=== PATIENT | male | born 1980 | race Caucasian/White ===

== ENCOUNTER 2017-05-17 19:50 | Observation (INO) | payer OTHER ==
[2017-05-17 20:23] LABS: #Basophils 0.1 thou/uL (0.0-0.2); #Eosinphils 0.2 thou/uL (0.0-0.7); #Lymphocytes 2.5 thou/uL (1.20-3.40); #Monocytes 0.5 thou/uL (0.11-0.59); #Neutrophils 4.4 thou/uL (1.40-6.50); %Eosinophils 3.1 % (0.0-10.0); %Lymphocytes 32.8 % (21.0-51.0); %Monocytes 6.1 % (0.0-10.0); Hematocrit 44.7 % (42.0-52.0); Mean Platelet Volume 8.3 fL (7.4-10.4); Red Blood Cell (RBC) Count 4.94 mill/uL (4.70-6.10); White Blood Cell (WBC) Count 7.7 thou/uL (4.8-10.8)
[2017-05-17 20:46] LABS: ALT (SGPT) 21 U/L (8-55); AST (SGOT) 18 U/L (5-34); Alkaline Phosphatase 62 U/L (40-150); Anion Gap 14 mmol/L (10-20); BUN (Urea Nitrogen) 12 mg/dL (8.9-20.6); Bilirubin, Total 0.6 mg/dL (0.2-1.2); CK (CPK) 104 U/L (30-200); Calc. Creatinine Clearance 0 mL/min (70-130); Calcium 9.3 mg/dL (7.8-10.44); Carbon Dioxide 24 mmol/L (22-29); Chloride 104 mmol/L (98-107); Estimated GFR-MDRD 77; Globulin 3.2 g/dL (2.4-3.5); Protein, Total 7.2 g/dL (6.0-8.3)
[2017-05-17 20:48] LABS: Troponin I Less than 0.010 ng/mL (< 0.028)
--- NOTE | 2017-05-17 21:09 | RAD ---
PORTABLE AP CHEST X-RAY 05/17/17 HISTORY: Chest pain. FINDINGS: The cardiac silhouette and pulmonary vasculature are within normal limits. The lungs are clear. Osse ous structures are intact. IMPRESSION: No acute cardiopulmonary process. POS: [facility]
[2017-05-17] MEDS ORDERED: Nitroglycerin 2% Ointment 1 INCH/1 GM Packet ONE (22:22)
[2017-05-17] MEDS ORDERED: Ondansetron HCl/PF 4 MG/2 ML Vial IVP PRN (23:51)
[2017-05-17] MEDS ORDERED: Ondansetron ODT 4 MG TAB SL PRN (23:51)
[2017-05-17 23:56] LABS: Troponin I Less than 0.010 ng/mL (< 0.028)
[2017-05-18 00:06] VITALS: BMI 58.8
[2017-05-18] MEDS ORDERED: Ondansetron ODT 4 MG TAB PO PRN (02:32)
[2017-05-18] MEDS ORDERED: cloNIDine HCl 0.1 MG TAB PO PRN (02:32)
[2017-05-18] MEDS ORDERED: Ondansetron HCl/PF 4 MG/2 ML Vial IVP PRN (02:32)
[2017-05-18] MEDS ORDERED: Acetaminophen 500 MG TAB PO PRN (02:32)
[2017-05-18] MEDS ORDERED: Nitroglycerin 0.4 MG TAB (25 Tab Bottle) SL PRN (02:32)
[2017-05-18 02:44] LABS: Troponin I Less than 0.010 ng/mL (< 0.028)
--- NOTE | 2017-05-18 04:15 | HP ---
DATE OF ADMISSION: 05/17/2017 PRIMARY CARE PROVIDER: Marlo brown. CHIEF COMPLAINT: Chest pain. HISTORY OF PRESENT ILLNESS: This is a 36-year-old male, who presented to [facility] Emergency Department complaining of chest pain, which began approximately 12:30-1:30 p.m. on 06/2017. The patient states he was at his job when he had intermittent chest pain with intense burn ing pressure in the central portion of his chest. The patient initially felt like this was indigest ion, improved when sitting down and resting. The patient denied any associated diaphoresis, left ar m or jaw discomfort. The patient does admit to associated generalized weakness over the last 1-2 we eks. The patient denies any known personal coronary artery disease history, but does state a strong family history as his father had a history of a myocardial infarction in his 40s. The patient does admit to smoking up to a pack of cigarettes daily and has been battling obesity. The patient also states he is taking Vyvanse for adult ADHD with intermittent dosing over the last week to 2 weeks. The patient denies any other exposure history to medications or [id number] remedies. The serafin ent does admit to some associated cough and cold-like symptoms over the last week, but no documented fever. In the emergency room, the patient underwent general evaluation receiving transdermal nitro glycerin as well as aspirin 324 mg. Initial workup including chest imaging was unremarkable. PAST MEDICAL HISTORY: 1. Adult ADD. 2. Morbid obesity. 3. History of lower extremity venous ulcerations requiring wound care. 4. Tobacco use. PAST SURGICAL HISTORY: Reviewed and negative. CURRENT MEDICATIONS: Vyvanse 70 mg p.o. daily. ALLERGIES: PENICILLIN and SULFA. FAMILY HISTORY: Father with early coronary artery disease and myocardial infarction in his 40s. SOCIAL HISTORY: Patient is , residing in [place], [place]. Smokes up to a pack of cig arettes daily. Occasional alcohol use. No illicit drug use. REVIEW OF SYSTEMS: The following complete review of systems was negative, unless otherwise mentione d in the HPI or below: Constitutional: Weight loss or gain, ability to conduct usual activities. Skin: Rash, itching. Eyes: Double vision, pain. ENT/Mouth: Nose bleeding, neck stiffness, pain, tenderness. Cardiovascular: Palpitations, dyspnea on exertion, orthopnea. Respiratory: Shortnes s of breath, wheezing, cough, hemoptysis, fever or night sweats. Gastrointestinal: Poor appetite, abdominal pain, heartburn, nausea, vomiting, constipation, or diarrhea. Genitourinary: Urgency, fr equency, dysuria, nocturia. Musculoskeletal: Pain, swelling. Neurologic/Psychiatric: Anxiety, de pression. Allergy/Immunologic: Skin rash, bleeding tendency. PHYSICAL EXAMINATION: VITAL SIGNS: On admission, blood pressure 136/83, pulse 88, respiratory rate 18, temperature 97.5 d egrees Fahrenheit, O2 saturation 96% on room air. GENERAL APPEARANCE: This is a 36-year-old male, alert and oriented x3, pleasant, conversa nt, in no acute distress. HEENT: Pupils are equal, round, and reactive to light and accommodation. Extraocular muscles are i ntact. No scleral icterus, no conjunctival injection. Nares patent. OP is clear. Teeth in good r epair. NECK: Supple, no cervical adenopathy, no thyromegaly, no carotid bruits, no JVD appreciated. Cervi daniel spine with full active and passive range of motion. No meningeal signs appreciated. CHEST: Lungs are clear to auscultation bilaterally. CARDIOVASCULAR: S1, S2, without noted murmur. ABDOMEN: Obese, soft, nontender, nondistended. Exam limited due to patient's body habitus. No kika ound or guarding noted. EXTREMITIES: Warm and dry with fair turgor. No clubbing, cyanosis, or asymmetric edema appreciated . Pulses palpable distally at the dorsalis pedis, posterior tibial, and popliteal arteries bilatera lly. Capillary refill less than 2 seconds. NEUROLOGIC: Cranial nerves II through XII are grossly intact. No focal or lateralizing signs appre ciated. PERTINENT LABORATORY AND X-RAY FINDINGS: Complete metabolic profile within normal limits. Troponin I negative x2. Lipase 42. CBC within normal limits. D-dimer 0.33. Portable chest x-ray dated , showed no acute cardiopulmonary process. EKG dated 05/17/2017 by my interpretation, shows sinus mechanism with rates in the 70s. Normal R-wave progression noted in the precordial leads. N ormal axis. No acute ST-T wave changes appreciated. ASSESSMENT AND PLAN: 1. Chest pain. Patient will be observed on the telemetry unit. We will proceed with Cardiolite st ress testing in the a.m. The patient will need a 2-day protocol given patient's body weight and godinez itations of radioisotope exposure. Check fasting lipid profile in the a.m. Aspirin 325 mg p.o. david ly. 2. Tobacco use. We will offer smoking cessation resources prior to discharge. 3. Elevated blood pressure. We will continue to monitor blood pressure trend. No current outpatie nt treatment. 4. Adult attention deficit disorder. Resume Vyvanse 70 mg daily. 5. Morbid obesity. Low fat, heart-healthy diet. 6. Prophylaxis. Sequential compression devices while on bed. Pepcid 20 mg p.o. b.i.d. 7. Code status is FULL. Surrogate medical decision maker is patient's spouse.
[2017-05-18] MEDS ORDERED: Lisdexamfetamine Dimesylate [Vyvanse] 70 MG PO SCH (09:00)
[2017-05-18] MEDS: Aspirin 325 MG TAB PO SCH (09:53)
[2017-05-18] MEDS: Famotidine 20 MG TAB PO SCH ×2 (09:53→20:12)
[2017-05-18] MEDS ORDERED: Regadenoson 0.4 MG/5 ML SYRINGE ONE (14:15)
--- NOTE | 2017-05-18 16:45 | PDOC.PN ---
- Subjective Encounter Start Date: 05/18/17 Encounter Start Time: 16:43 Subjective: no chest pain - Objective Resuscitation Status: Resuscitation Status FULL:Full Resuscitation MAR Reviewed: Yes Vital Signs & Weight: Vital Signs (12 hours) Temp Pulse Resp BP Pulse Ox 05/18/17 16:19 98.3 F 72 18 125/58 L 99 05/18/17 11:10 98.1 F 64 16 131/69 99 05/18/17 10:10 100 05/18/17 08:00 98.6 F 63 18 05/18/17 07:27 98.6 F 63 18 114/58 L 100 Weight Weight 433 lb 6.4 oz Result Diagrams: 05/17/17 20:10 05/17/17 20:10 Phys Exam - Physical Examination Constitutional: NAD Neck: no JVD Respiratory: clear to auscultation bilateral Cardiovascular: RRR, no significant murmur Gastrointestinal: soft, positive bowel sounds Musculoskeletal: edema present Dx/Plan (1) Chest pain Code(s): R07.9 - CHEST PAIN, UNSPECIFIED Status: Acute Qualifiers: Chest pain type: unspecified Qualified Code(s): R07.9 - Chest pain, unspecified (2) HTN (hypertension) Code(s): I10 - ESSENTIAL (PRIMARY) HYPERTENSION Status: Acute Qualifiers: Hypertension type: unspecified Qualified Code(s): I10 - Essential (primary ) hypertension (3) Tobacco abuse Code(s): Z72.0 - TOBACCO USE Status: Chronic (4) Obesity Code(s): E66.9 - OBESITY, UNSPECIFIED Status: Chronic - Plan stable, 2 day stress required. cont current meds, diet , etc * .
[2017-05-19] MEDS: Aspirin 325 MG TAB PO SCH (09:32)
[2017-05-19] MEDS: Famotidine 20 MG TAB PO SCH (09:32)
--- NOTE | 2017-05-19 10:40 | NM ---
CARDIAC SPECT: CLINICAL HISTORY: 36-year-old male with chest pain. TECHNIQUE: A myocardial perfusion scan was performed using the single isotope two day protocol with 33 mCi tech netium-99m sestamibi injected intravenously for both stress and rest images. Pharmacologic stress [facility] Lexiscan was monitored and interpreted by Hunter Cabral NP. FINDINGS: Homogeneous tracer distribution is seen in the myocardial segments on stress and rest images without fixed or reversible defects. GATED SPECT LVEF: 54%. WALL MOTION EXAM: Normal. IMPRESSION: Normal myocardial perfusion scan. POS: [facility]
[2017-05-19 11:40] VITALS: BP 130/69; TEMP 98.3
--- NOTE | 2017-05-19 19:32 | DIS ---
PRIMARY CARE PROVIDER: Romaine Sarkar DO DATE OF ADMISSION: 05/18/2017 DATE OF DISCHARGE: 05/19/2017 ADMITTING DIAGNOSES: 1. Atypical chest pain. 2. Tobacco abuse. 3. Attention deficit disorder. 4. Morbid obesity. DISCHARGE DIAGNOSES: 1. Atypical right-sided chest pain. 2. Acute coronary syndrome ruled out. 3. Tobacco abuse. 4. Morbid obesity, BMI 58. 5. Attention deficit disorder, on Vyvanse. DISPOSITION: Home. CONSULTANTS: None. PROCEDURES: None. PERTINENT LABORATORY AND RADIOGRAPHICAL DATA: 1. Nuclear stress test 05/18/2017, revealing no evidence of reversible ischemia. 2. Cardiac enzymes x3 negative. LDL of 123, creatinine 1.07. Estimated GFR is 77. PHYSICAL EXAMINATION: GENERAL: On day of discharge, the patient is awake, alert, no complaints, no chest pain. VITAL SIGNS: T-max is 98.4, blood pressure is 130/69, pulse of 66, respiratory rate 16, saturation 99% on room air. BRIEF HISTORY OF HOSPITAL COURSE: The patient is morbidly obese and visual BMI of 58, tobacco abuse , who presented through the emergency room at [facility] with chest pain on 017. Patient reports that this on his right side in sharp and stabbing in nature. Patient was plac ed in observation status. Acute coronary syndrome ruled out. Today, nuclear stress test was perfor med due to the patient's body weight. Ultimately nuclear stress test is negative for reversible isc hemia. Patient's chest pains have resolved. Patient has been counseled as expected causation of va rious types of chest pain and has been reinforced to abstain from tobacco use as he was explained th e mechanism by which this would potentially cause chest pains. In addition, as he is morbidly obese with a BMI of 58, weighing 433 pounds, he has been encouraged to engage in cardiovascular exercise in order to decrease his body weight and ultimately his risk factors for developing high blood press ure, diabetes, and cardiovascular disease. The patient's LDL is slightly elevated at 123; however, this is still within reasonable range for li festyle modifications to be adjusted. The patient will address these issues with his provider who manages his ADD, Dr. Sarkar. DISCHARGE MEDICATIONS: Please see medication reconciliation form. Time spent approximately 30 minutes.
== END 2017-05-19 13:55 | disposition home or self-care (01) ==
LOC: ERS 19:50 → 2SW 23:23
PROVIDERS: ADMIT Family Medicine; ATTEND Family Medicine
DX: R07.89 Other chest pain (principal); F90.9 Attention-deficit hyperactivity disorder, unspecified type; F17.210 Nicotine dependence, cigarettes, uncomplicated; E66.01 Morbid (severe) obesity due to excess calories; Z68.43 Body mass index [BMI] 50.0-59.9, adult; Z88.0 Allergy status to penicillin; Z88.2 Allergy status to sulfonamides; Z79.899 Other long term (current) drug therapy
CPT/HCPCS: 36415; 71010; 78452; 80053; 80061; 82550; 82553; 83690; 84484; 85025; 85379; 93005; 93017; 94760; A9500; G0378; J2785

== ENCOUNTER 2020-06-07 14:45 | Inpatient (IN) | payer OTHER, SELFPAY ==
[2020-06-07 15:56] LABS: Mean Corpuscular HGB CONC 34.8 g/dL (32.0-36.0); Mean Corpuscular Volume 89.2 fL (78.0-98.0); Platelet Count 217 thou/uL (130-400); RBC Distribution Width 12.9 % (11.5-14.5); Red Blood Cell (RBC) Count 4.84 mill/uL (4.70-6.10); White Blood Cell (WBC) Count 25.5 thou/uL (4.8-10.8)
[2020-06-07] MEDS ORDERED: Cefepime 2 GM VIAL ONE (16:06)
[2020-06-07] MEDS ORDERED: Acetaminophen 500 MG TAB ONE (16:06)
[2020-06-07 16:10] LABS: Band 29 % (5-11); Lymphocytes 3 % (21-51); MDiff Complete? YES; Monocytes 4 % (0-10); Neutrophil 64 % (42-75); Platelet Morphology Comment Appears Adequate; RBC Morphology Normal; Vacuoles SLIGHT
--- NOTE | 2020-06-07 16:12 | RAD ---
Chest AP view INDICATION: Fever with right leg pain and cellulitis COMPARISON: May 17, 2017 FINDINGS: Lungs: The lungs are clear Cardiac silhouette: The cardiomediastinal silhouette appears within normal limits. Pulmonary vasculature: Normal Pleural spaces: No pleural effusion or pneumothorax is demonstrated. Upper abdomen: No abnormality seen. Osseous structures: No acute osseous abnormality. Additional findings: None. IMPRESSION: No acute cardiopulmonary abnormality.
[2020-06-07 16:17] LABS: ALT (SGPT) 16 U/L (8-55); AST (SGOT) 15 U/L (5-34); Alkaline Phosphatase 65 U/L (40-110); Anion Gap 17 mmol/L (10-20); BUN (Urea Nitrogen) 10 mg/dL (8.9-20.6); Bilirubin, Total 1.5 mg/dL (0.2-1.2); Calc. Creatinine Clearance 0 mL/min (70-130); Calcium 9.3 mg/dL (7.8-10.44); Carbon Dioxide 23 mmol/L (22-29); Chloride 99 mmol/L (98-107); Estimated GFR-MDRD 65; Globulin 3.6 g/dL (2.4-3.5); Glucose 141 mg/dL (70-105); Potassium 3.9 mmol/L (3.5-5.1); Protein, Total 7.6 g/dL (6.0-8.3); Sodium 135 mmol/L (136-145)
[2020-06-07] MEDS ORDERED: Senokot S 8.6-50 MG TAB PO PRN (16:57)
[2020-06-07] MEDS ORDERED: Sodium Chloride 0.9% 1,000 ML IV SCH (19:00)
[2020-06-07 19:15] LABS: Lactic Acid 1.4 mmol/L (0.5-2.2)
[2020-06-07 20:46] VITALS: BMI 61.0
[2020-06-07] MEDS: Famotidine 20 MG TAB PO SCH (20:59)
[2020-06-07] MEDS: Acetaminophen 325 MG TAB PO PRN (20:59)
--- NOTE | 2020-06-08 00:13 | HP ---
CHIEF COMPLAINT: Right lower extremity cellulitis. HISTORY OF PRESENT ILLNESS: The patient is a 39-year-old male with no past medical history, who comes in to the hospital with complaints of right lower leg pain with worsening erythema going on for the past couple days. The patient stated that he had a fever of 104 at home. He states that he slept all since Monday, woke up on Monday to do a few things around the house, maybe had some dinner; however, he has been feeling very tired and weak. Also, complains of fevers and chills at home. The patient states that he has had cellulitis in both his legs in the past. PAST MEDICAL HISTORY: Denies. PAST SURGICAL HISTORY: Denies. SOCIAL HISTORY: He occasionally drinks maybe one or two beers every other day. Former smoker. Occasional drug use. REVIEW OF SYSTEMS: All negative except for the ones mentioned in the HPI. FAMILY HISTORY: Father had a heart attack at the age of 40. ALLERGIES: HE IS ALLERGIC TO PENICILLIN AND SULFA. CURRENT MEDICATIONS: None. PHYSICAL EXAMINATION: VITAL SIGNS: Temperature of 103.2 in the ER, 99% on room air, heart rate was 119, respirations 18, blood pressure 169/87. GENERAL: He is awake, alert, oriented x3. Does not appear in distress. CV: Sinus tach mild, regular. ABDOMEN: Obese. Bowel sounds are present x2. LUNGS: Clear to auscultation. No rhonchi or wheezes noted. EXTREMITIES: Lower extremities, he has significant cellulitis to his right lower extremity titrating up to his right thigh area. He does have chronic healed lesions to his right pride. No drainage is noted. Pedal pulses are present bilaterally. NEUROVASCULAR: No focal deficits noted. SKIN: Besides the right leg cellulitis, significantly intact. LABORATORY RESULTS: WBCs are 25.5, hemoglobin 15.0, hematocrit of 43.2, bands of 29. Chemistry, sodium of 135, potassium of 3.9, BUN of 10, creatinine of 1.22, lactic acid of 2.5, bilirubin of 1.5. He did have a chest x-ray done, which did not show any acute abnormalities. ASSESSMENT AND PLAN: The patient is a very pleasant 39-year-old male, who presents to the hospital with complaints of right leg pain. 1. Sepsis, most likely cellulitis. We will start him on broad-spectrum antibiotics. We will start him on some IV hydration. Continue to monitor. 2. Cellulitis of the right lower extremity. He does have some chronic wounds, they are superficial. No drainage noted. We will continue antibiotics, IV hydration and monitor. 3. Lactic acidosis, most likely secondary to sepsis. We will monitor. 4. Deep vein thrombosis prophylaxis. We will put the patient on subcutaneous Lovenox. Job ID: [id number]
[2020-06-08] MEDS: Acetaminophen 325 MG TAB PO PRN ×2 (05:15→16:30)
[2020-06-08 06:24] LABS: Anion Gap 15 mmol/L (10-20); BUN (Urea Nitrogen) 12 mg/dL (8.9-20.6); Calc. Creatinine Clearance 278 mL/min (70-130); Calcium 8.1 mg/dL (7.8-10.44); Carbon Dioxide 19 mmol/L (22-29); Chloride 103 mmol/L (98-107); Estimated GFR-MDRD 81; Glucose 115 mg/dL (70-105); Potassium 4.1 mmol/L (3.5-5.1); Sodium 133 mmol/L (136-145)
[2020-06-08 06:38] LABS: Band 18 % (5-11); Hemoglobin 12.6 g/dL (14.0-18.0); Lymphocytes 3 % (21-51); MDiff Complete? YES; Mean Corpuscular HGB CONC 34.2 g/dL (32.0-36.0); Mean Corpuscular Hemoglobin 30.6 pg (27.0-31.0); Mean Corpuscular Volume 89.3 fL (78.0-98.0); Mean Platelet Volume 8.5 fL (7.4-10.4); Monocytes 3 % (0-10); Neutrophil 76 % (42-75); Platelet Count 164 thou/uL (130-400); Platelet Morphology Comment Appears Adequate; RBC Distribution Width 12.9 % (11.5-14.5); Red Blood Cell (RBC) Count 4.12 mill/uL (4.70-6.10); White Blood Cell (WBC) Count 16.5 thou/uL (4.8-10.8)
[2020-06-08] MEDS: Famotidine 20 MG TAB PO SCH ×2 (07:51→20:20)
[2020-06-08] MEDS: Enoxaparin Sodium 40 MG/0.4 ML SYRINGE SC SCH (07:51)
[2020-06-08] MEDS ORDERED: FLU VACC QS2020-21(6MOS UP)/PF 60 MCG/0.5 ML SYRINGE IM ONE (09:00)
[2020-06-08] MEDS ORDERED: Vancomycin HCl 1.5 GM in Sodium Chloride 0.9% 250 ML 300 ML IVPB SCH (09:00)
[2020-06-08 13:01] LABS: SARS-CoV-2 MS2 Positive; SARS-CoV-2 N Gene Negative; SARS-CoV-2 S Gene Negative; SARS-CoV-2 by NAA Not Detected (NotDetected); SARS-CoV-2 orf1ab Negative
[2020-06-08 16:14] LABS: Vancomycin, Trough 17.9 ug/mL
[2020-06-08] MEDS: Acetaminophen/Codeine 30-300mg Tablet PO PRN (20:20)
[2020-06-09] MEDS: Acetaminophen 325 MG TAB PO PRN (02:22)
[2020-06-09] MEDS ORDERED: Sodium Chloride 0.9% 1,000 ML IV SCH (03:00)
[2020-06-09] MEDS: Ondansetron PF 4 MG/2 ML Vial IVP PRN (06:00)
--- NOTE | 2020-06-09 08:54 | PDOC.HOSPP ---
- Subjective Encounter Date: 06/08/20 Encounter Time: 10:30 Subjective: pt up in bed no complains - Objective Vital Signs & Weight: Vital Signs (12 hours) Temp Pulse Resp BP BP Pulse Ox 06/09/20 07:25 99.1 F 80 20 138/82 958 H 06/09/20 06:03 84 157/89 H 06/09/20 05:46 98.9 F 06/09/20 03:15 100.9 F H 06/09/20 02:36 101.3 F H 06/09/20 02:14 103.1 F H 06/09/20 01:00 101 F H 06/08/20 23:42 101.8 F H Weight Weight 450 lb I&O: 06/08/20 06/09/20 06/10/20 06:59 06:59 06:59 Intake Total 3500 Balance 3500 Result Diagrams: 06/08/20 05:21 06/08/20 05:21 Hospitalist ROS - Review of Systems Respiratory: denies: cough, dry, shortness of breath, hemoptysis, SOB with excertion, pleuritic pain, sputum, wheezing, other Cardiovascular: denies: chest pain, palpitations, orthopnea, paroxysmal noc. dyspnea, edema, light headedness, other Gastrointestinal: denies: nausea, vomiting, abdominal pain, diarrhea, constipation, melena, hematochezia, other - Medication Medications: Active Medications Generic Name Dose Route Start Last Admin Trade Name Freq PRN Reason Stop Dose Admin Acetaminophen 650 mg 06/07/20 16:57 06/09/20 02:22 Acetaminophen 325 Mg Tab PO 650 mg Q8H PRN Administration Headache/Fever/Mild Pain (1-3) Acetaminophen/Codeine Phosphate 1 tab 06/07/20 18:46 06/08/20 20:20 Acetaminophen/Codeine 30-300mg Tablet PO 1 tab Q6H PRN Administration Pain 4-6 Enoxaparin Sodium 40 mg 06/08/20 09:00 06/08/20 07:51 Enoxaparin Sodium 40 Mg/0.4 Ml Syringe SC 40 mg 0900 JIGNESH Administration Famotidine 20 mg 06/07/20 21:00 06/08/20 20:20 Famotidine 20 Mg Tab PO 20 mg BID JIGNESH Administration Levofloxacin 750 mg/ Device 150 mls @ 100 mls/hr 06/07/20 20:00 06/08/20 20:22 IVPB 150 mls Q24HR JIGNESH Administration Vancomycin HCl 2 gm/ Sodium 500 mls @ 250 mls/hr 06/07/20 23:59 06/09/20 08:39 Chloride IVPB 500 mls 0800,1600,2359 JIGNESH Administration Sodium Chloride 1,000 mls @ 75 mls/hr 06/09/20 03:00 06/09/20 03:14 Normal Saline 0.9% IV 06/09/20 16:19 1,000 mls .[id number] JIGNESH Administration Ondansetron HCl 4 mg 06/07/20 16:57 06/09/20 06:00 Ondansetron Pf 4 Mg/2 Ml Vial IVP 4 mg Q6H PRN Administration Nausea/Vomiting - Exam Neck: negative: supple, symmetric, no JVD, no thyromegaly, no lymphadenopathy, no carotid bruit, JVD Heart: negative: RRR, no murmur, no gallops, no rubs, normal peripheral pulses, irregular, diminshed peripheral pulses, murmur present, II/IV, III/IV Respiratory: negative: CTAB, no wheezes, no rales, no ronchi, normal chest exp ansion, no tachypnea, normal percussion, rales, rhonchi, tachypneic, wheezes Extremities - other findings: right lower ext still has erythema but has improved. Hosp A/P (1) Sepsis Code(s): A41.9 - SEPSIS, UNSPECIFIED ORGANISM Status: Acute (2) Cellulitis Code(s): L03.90 - CELLULITIS, UNSPECIFIED Status: Acute (3) HTN (hypertension) Code(s): I10 - ESSENTIAL (PRIMARY) HYPERTENSION Status: Acute Qualifiers: (4) Obesity Code(s): E66.9 - OBESITY, UNSPECIFIED Status: Chronic - Plan will continue abx for now. pt still has some bandemia. possible discharge in the next 24-48hr. pt on dvt ppx and has been asked to ambulate.
[2020-06-09] MEDS: Enoxaparin Sodium 40 MG/0.4 ML SYRINGE SC SCH (10:48)
[2020-06-09] MEDS: Famotidine 20 MG TAB PO SCH ×2 (10:48→20:46)
--- NOTE | 2020-06-09 12:12 | PDOC.HOSPP ---
- Subjective Encounter Date: 06/09/20 Encounter Time: 11:45 Subjective: pt up in bed still complains of pain to her right lower ext. - Objective Vital Signs & Weight: Vital Signs (12 hours) Temp Pulse Resp BP BP Pulse Ox 06/09/20 07:25 99.1 F 80 20 138/82 98 06/09/20 06:03 84 157/89 H 06/09/20 05:46 98.9 F 06/09/20 03:15 100.9 F H 06/09/20 02:36 101.3 F H 06/09/20 02:14 103.1 F H 06/09/20 01:00 101 F H Weight Weight 450 lb I&O: 06/08/20 06/09/20 06/10/20 06:59 06:59 06:59 Intake Total 3500 Balance 3500 Result Diagrams: 06/08/20 05:21 06/08/20 05:21 Hospitalist ROS - Review of Systems Cardiovascular: denies: chest pain, palpitations, orthopnea, paroxysmal noc. dyspnea, edema, light headedness, other Gastrointestinal: denies: nausea, vomiting, abdominal pain, diarrhea, constipation, melena, hematochezia, other Genitourinary: denies: dysuria, frequency, incontinence, hematuria, retention, other Skin: reports: rash - Medication Medications: Active Medications Generic Name Dose Route Start Last Admin Trade Name Freq PRN Reason Stop Dose Admin Acetaminophen 650 mg 06/07/20 16:57 06/09/20 02:22 Acetaminophen 325 Mg Tab PO 650 mg Q8H PRN Administration Headache/Fever/Mild Pain (1-3) Acetaminophen/Codeine Phosphate 1 tab 06/07/20 18:46 06/08/20 20:20 Acetaminophen/Codeine 30-300mg Tablet PO 1 tab Q6H PRN Administration Pain 4-6 Enoxaparin Sodium 40 mg 06/08/20 09:00 06/09/20 10:48 Enoxaparin Sodium 40 Mg/0.4 Ml Syringe SC 40 mg 0900 JIGNESH Administration Famotidine 20 mg 06/07/20 21:00 06/09/20 10:48 Famotidine 20 Mg Tab PO 20 mg BID JIGNESH Administration Levofloxacin 750 mg/ Device 150 mls @ 100 mls/hr 06/07/20 20:00 06/08/20 20:22 IVPB 150 mls Q24HR JIGNESH Administration Vancomycin HCl 2 gm/ Sodium 500 mls @ 250 mls/hr 06/07/20 23:59 06/09/20 08:39 Chloride IVPB 500 mls 0800,1600,2359 JIGNESH Administration Sodium Chloride 1,000 mls @ 75 mls/hr 06/09/20 03:00 06/09/20 03:14 Normal Saline 0.9% IV 06/09/20 16:19 1,000 mls .[id number] JIGNESH Administration Ondansetron HCl 4 mg 06/07/20 16:57 06/09/20 06:00 Ondansetron Pf 4 Mg/2 Ml Vial IVP 4 mg Q6H PRN Administration Nausea/Vomiting - Exam Neck: negative: supple, symmetric, no JVD, no thyromegaly, no lymphadenopathy, no carotid bruit, JVD Heart: negative: RRR, no murmur, no gallops, no rubs, normal peripheral pulses, irregular, diminshed peripheral pulses, murmur present, II/IV, III/IV Respiratory: negative: CTAB, no wheezes, no rales, no ronchi, normal chest expansion, no tachypnea, normal percussion, rales, rhonchi, tachypneic, wheezes Gastrointestinal: negative: soft, non-tender, non-distended, normal bowel sounds, no palpable masses, no hepatomegaly, no splenomegaly, no bruit, no guarding, no rigidity, tender to palpation, distended, diminished bowl sounds, voluntary guarding Extremities: 1+ LE edema Extremities - other findings: erythema to right leg Hosp A/P (1) Sepsis Code(s): A41.9 - SEPSIS, UNSPECIFIED ORGANISM Status: Acute (2) Cellulitis Code(s): L03.90 - CELLULITIS, UNSPECIFIED Status: Acute (3) HTN (hypertension) Code(s): I10 - ESSENTIAL (PRIMARY) HYPERTENSION Status: Acute Qualifiers: (4) Obesity Code(s): E66.9 - OBESITY, UNSPECIFIED Status: Chronic - Plan will continue abx for now. pt still has some bandemia. possible discharge in the next 24-48hr. pt on dvt ppx and has been asked to ambulate. 06/09 will get right lower ext doppler. will continue abx for now. pt encouraged to ambulate. will stop fluid.
--- NOTE | 2020-06-09 15:55 | ULT ---
RIGHT LOWER EXTREMITY DOPPLER VENOUS ULTRASOUND PROVIDED CLINICAL HISTORY: Right lower extremity edema TECHNIQUE: Grayscale and color Doppler sonography with spectral analysis was performed of the right common femor al, femoral, popliteal, posterior tibial, greater saphenous and profunda femoral veins. FINDINGS: The mid to distal right posterior tibial vein were not demonstrated. The remaining deep mckenzie ous structures that were visualized demonstrated normal compression, flow and augmentation. IMPRESSION: No sonographic evidence for right lower extremity deep venous thrombosis. Nonvisualization of the mid to distal right posterior tibial vein. The remaining visualized deep venous segments appear patent.
[2020-06-09] MEDS: Acetaminophen/Codeine 30-300mg Tablet PO PRN (17:05)
[2020-06-09] MEDS: Ibuprofen 600 MG TAB PO PRN (22:28)
[2020-06-10] MEDS: Enoxaparin Sodium 40 MG/0.4 ML SYRINGE SC SCH (08:42)
[2020-06-10] MEDS: Famotidine 20 MG TAB PO SCH ×2 (08:42→20:15)
--- NOTE | 2020-06-10 10:39 | PDOC.HOSPP ---
- Subjective Encounter Date: 06/10/20 Encounter Time: 09:45 Subjective: pt up in bed states that he got up and moved around yest. He does have some pain to his right leg. - Objective Vital Signs & Weight: Vital Signs (12 hours) Temp Pulse Resp BP BP Pulse Ox 06/10/20 09:41 99 06/10/20 07:33 99.2 F 87 20 146/82 H 99 06/10/20 04:00 98.1 F 81 20 156/94 H 94 L 06/10/20 00:30 98.6 F 06/09/20 23:50 99.7 F H 98 20 131/75 97 06/09/20 22:58 99.7 F H Weight Weight 450 lb I&O: 06/09/20 06/10/20 06/11/20 06:59 06:59 06:59 Intake Total 3500 Balance 3500 Result Diagrams: 06/08/20 05:21 06/08/20 05:21 Hospitalist ROS - Review of Systems Cardiovascular: denies: chest pain, palpitations, orthopnea, paroxysmal noc. dyspnea, edema, light headedness, other Gastrointestinal: denies: nausea, vomiting, abdominal pain, diarrhea, constipation, melena, hematochezia, other Musculoskeletal: reports: leg pain - Medication Medications: Active Medications Generic Name Dose Route Start Last Admin Trade Name Freq PRN Reason Stop Dose Admin Acetaminophen 650 mg 06/07/20 16:57 06/09/20 02:22 Acetaminophen 325 Mg Tab PO 650 mg Q8H PRN Administration Headache/Fever/Mild Pain (1-3) Acetaminophen/Codeine Phosphate 1 tab 06/07/20 18:46 06/09/20 17:05 Acetaminophen/Codeine 30-300mg Tablet PO 1 tab Q6H PRN Administration Pain 4-6 Enoxaparin Sodium 40 mg 06/08/20 09:00 06/10/20 08:42 Enoxaparin Sodium 40 Mg/0.4 Ml Syringe SC 40 mg 0900 JIGNESH Administration Famotidine 20 mg 06/07/20 21:00 06/10/20 08:42 Famotidine 20 Mg Tab PO 20 mg BID JIGNESH Administration Levofloxacin 750 mg/ Device 150 mls @ 100 mls/hr 06/07/20 20:00 06/09/20 22:1 7 IVPB 150 mls Q24HR JIGNESH Administration Vancomycin HCl 2 gm/ Sodium 500 mls @ 250 mls/hr 06/07/20 23:59 06/10/20 08:43 Chloride IVPB 500 mls 0800,1600,2359 JIGNESH Administration Ibuprofen 600 mg 06/09/20 02:34 06/09/20 22:28 Ibuprofen 600 Mg Tab PO 600 mg Q6H PRN Administration Fever > 101 Ondansetron HCl 4 mg 06/07/20 16:57 06/09/20 06:00 Ondansetron Pf 4 Mg/2 Ml Vial IVP 4 mg Q6H PRN Administration Nausea/Vomiting - Exam Heart: negative: RRR, no murmur, no gallops, no rubs, normal peripheral pulses, irregular, diminshed peripheral pulses, murmur present, II/IV, III/IV Respiratory: negative: CTAB, no wheezes, no rales, no ronchi, normal chest expansion, no tachypnea, normal percussion, rales, rhonchi, tachypneic, wheezes Gastrointestinal: negative: soft, non-tender, non-distended, normal bowel sounds, no palpable masses, no hepatomegaly, no splenomegaly, no bruit, no guarding, no rigidity, tender to palpation, distended, diminished bowl sounds, voluntary guarding Extremities: 2+ LE edema Extremities - other findings: right legt still has significant erythema Hosp A/P (1) Sepsis Code(s): A41.9 - SEPSIS, UNSPECIFIED ORGANISM Status: Acute (2) Cellulitis Code(s): L03.90 - CELLULITIS, UNSPECIFIED Status: Acute (3) HTN (hypertension) Code(s): I10 - ESSENTIAL (PRIMARY) HYPERTENSION Status: Acute Qualifiers: (4) Obesity Code(s): E66.9 - OBESITY, UNSPECIFIED Status: Chronic - Plan will continue abx for now. pt still has some bandemia. possible discharge in the next 24-48hr. pt on dvt ppx and has been asked to ambulate. 06/09 will get right lower ext doppler. will continue abx for now. pt encouraged to ambulate. will stop fluid. 06/10 pt's Doppler to right leg negative for dvt. IV fluids stop. will give one dose of lasix. He has significant swelling to his right leg. erythema still persists. He is on vanco/Levaquin.
[2020-06-10] MEDS ORDERED: Furosemide 40 MG/4 ML VIAL SLOW IVP SCH (10:45)
[2020-06-10] MEDS: Acetaminophen/Codeine 30-300mg Tablet PO PRN ×2 (14:32→20:33)
[2020-06-11] MEDS: Ibuprofen 600 MG TAB PO PRN (00:15)
[2020-06-11 06:20] LABS: Band 6 % (5-11); Hemoglobin 11.6 g/dL (14.0-18.0); Hypochromia SLIGHT = 6-15 cells (100X) (0-5/hpf); Lymphocytes 10 % (21-51); MDiff Complete? YES; Mean Corpuscular HGB CONC 33.5 g/dL (32.0-36.0); Mean Corpuscular Volume 89.4 fL (78.0-98.0); Mean Platelet Volume 8.3 fL (7.4-10.4); Monocytes 8 % (0-10); Neutrophil 76 % (42-75); Platelet Count 193 thou/uL (130-400); Platelet Morphology Comment Appears Adequate; Red Blood Cell (RBC) Count 3.87 mill/uL (4.70-6.10); White Blood Cell (WBC) Count 13.6 thou/uL (4.8-10.8)
[2020-06-11 06:24] LABS: ALT (SGPT) 38 U/L (8-55); AST (SGOT) 35 U/L (5-34); Albumin 2.6 g/dL (3.5-5.0); Alkaline Phosphatase 99 U/L (40-110); Anion Gap 13 mmol/L (10-20); BUN (Urea Nitrogen) 15 mg/dL (8.9-20.6); Bilirubin, Total 0.7 mg/dL (0.2-1.2); Calc. Creatinine Clearance 283 mL/min (70-130); Calcium 8.2 mg/dL (7.8-10.44); Carbon Dioxide 23 mmol/L (22-29); Chloride 101 mmol/L (98-107); Estimated GFR-MDRD 83; Globulin 3.3 g/dL (2.4-3.5); Glucose 109 mg/dL (70-105); Potassium 3.6 mmol/L (3.5-5.1); Protein, Total 5.9 g/dL (6.0-8.3); Sodium 133 mmol/L (136-145)
[2020-06-11] MEDS: Ondansetron PF 4 MG/2 ML Vial IVP PRN (09:01)
[2020-06-11] MEDS: Enoxaparin Sodium 40 MG/0.4 ML SYRINGE SC SCH (09:05)
[2020-06-11] MEDS: Famotidine 20 MG TAB PO SCH ×2 (09:19→20:11)
[2020-06-11 13:31] LABS: Bilirubin Negative (Negative); Blood, Urine Small (Negative); Glucose, Urine (Dipstick) Negative (Negative); Ketone, Urine Negative (Negative); Leukocyte Negative (Negative); Nitrite Negative (Negative); Protein, Urine (Dipstick) Trace mg/dL (Neg-Trace)
[2020-06-11 13:33] LABS: Urine Culture Reflex No No
[2020-06-11 13:49] LABS: Clarity Hazy (Clear)
[2020-06-11 13:50] LABS: Bacteria/HPF Rare-Few HPF (None Seen); Squamous Epithelial None Seen HPF (0-3); WBC/HPF 0-3 HPF (0-3)
[2020-06-11] MEDS: Acetaminophen/Codeine 30-300mg Tablet PO PRN (13:59)
[2020-06-11] MEDS: CEFAZOLIN 2 GM in Premix Bag 1 BAG IVPB SCH ×2 (15:23→22:03)
--- NOTE | 2020-06-11 17:43 | CON ---
DATE OF CONSULTATION: 06/11/2020 REASON FOR CONSULTATION: Cellulitis, right lower extremity. HISTORY OF PRESENT ILLNESS: A 39-year-old with morbid obesity and lymphedema in lower extremities and recurrent episodes of cellulitis, I think at least 3 or 4 in the past. He came in this time with acute onset of inflammatory changes in the right lower extremity, which started 2 days before admission. The patient wears compression stockings, but irregularly and those are not very effective. They seem to go only up to about 2/3 of his right leg and do not have very strong compression, and again, he does not wear them very often. So, since admission, he has been on Levaquin and vancomycin. He is feeling a little bit better, but there is quite a bit of erythema in the right leg still. No headaches, visual symptoms, sore throat, odynophagia, or dysphagia. No cough, sputum production, or chest pain. No abdominal pain or diarrhea. No genitourinary symptoms. No other joint symptoms. MEDICAL HISTORY: Morbid obesity, and episodes of cellulitis, recurrent. SURGICAL HISTORY: Negative. SOCIAL HISTORY: He works as [employer]. . Drinks occasionally. Former smoker. FAMILY HISTORY: Coronary artery disease. ALLERGIES: PENICILLIN WHEN HE WAS 2 YEARS OLD, HE DOES NOT RECALL THE REACTION EXACTLY. SULFA DRUGS WITH RASH. CURRENT MEDICATIONS: 1. Lovenox. 2. Levofloxacin. 3. Vancomycin. PHYSICAL EXAMINATION: VITAL SIGNS: T-max 103, he seems to be defervescing now. BP 140/80, heart rate 83, respiratory rate 18, and O2 saturation 99% on room air. SKIN: With the areas of circumferential erythema in the right leg, extending from the foot all the way to the medial thigh, sort of a reddish to violaceous erythema. There are two areas of healing ulceration in the anterior right tibial skin surface, right at the ankle and those are mostly healed by now. There is no blistering. No areas of discoloration or necrosis. No lymphadenopathy. HEENT: Ocular movements are conjugate. Oral cavity with numerous teeth in place, in good shape. NECK: Supple. LUNGS: Symmetric, clear breath sounds. HEART: S1 and S2, regular rate. No S3 or S4. ABDOMEN: Soft. Not distended or tender. No ascites. No bladder distention. MUSCULOSKELETAL: No joint inflammatory activity. He moves extremities equally. NEUROLOGIC: Cognitive function appears to be intact. LABORATORY DATA: Sodium 133, creatinine 0.99. Liver profile with AST 35, other liver enzymes normal. Albumin 2.6, which is down from admission. White cell count is down from 25 to 13, hemoglobin 11, platelets 493, bands are down from 29 to 6. SARS-CoV-2 not detected. One set of blood cultures with Micrococcus Kocuria, most likely contaminant rather than the true pathogen. Vascular ultrasound with no evidence of deep vein thrombosis. Chest x-ray with no infiltrates. ASSESSMENT: Morbid obesity, recurrent episodes of cellulitis and now right leg cellulitis extending to the thigh. DISCUSSION: The most common culprits for this sort of process are beta- hemolytic Streptococci including Strep group A, B, C, and G. Staphylococcus aureus, gram-negative rods are less likely. The reported allergy history is to penicillin at the age of 2, it is probably not a significant factor in the antimicrobial decision at this point in time as proven by numerous followup studies that have been carried out and in the literature with pretty much non-existent adverse reactions to rechallenge many years later. In this case, we can use cefazolin and transition to Keflex after the initial phase of therapy, then he would benefit from suppressive antimicrobial therapy with Keflex 250 b.i.d. for one year and compression device. Two randomized control trials have shown that those 2 interventions are associated with a marked reduction in the rates of recurrence. Job ID: [id number] [facility]
[2020-06-11] MEDS: Acetaminophen 325 MG TAB PO PRN (20:19)
[2020-06-12] MEDS: CEFAZOLIN 2 GM in Premix Bag 1 BAG IVPB SCH ×3 (05:30→21:16)
[2020-06-12 07:12] LABS: Hemoglobin 12.2 g/dL (14.0-18.0); Mean Corpuscular HGB CONC 34.1 g/dL (32.0-36.0); Mean Corpuscular Volume 90.8 fL (78.0-98.0); Mean Platelet Volume 8.3 fL (7.4-10.4); Platelet Count 264 thou/uL (130-400); RBC Distribution Width 12.9 % (11.5-14.5); Red Blood Cell (RBC) Count 3.93 mill/uL (4.70-6.10); White Blood Cell (WBC) Count 12.8 thou/uL (4.8-10.8)
[2020-06-12 07:22] LABS: ALT (SGPT) 45 U/L (8-55); AST (SGOT) 42 U/L (5-34); Albumin 2.8 g/dL (3.5-5.0); Alkaline Phosphatase 127 U/L (40-110); Anion Gap 14 mmol/L (10-20); BUN (Urea Nitrogen) 12 mg/dL (8.9-20.6); Bilirubin, Total 0.6 mg/dL (0.2-1.2); Calc. Creatinine Clearance 289 mL/min (70-130); Calcium 8.5 mg/dL (7.8-10.44); Carbon Dioxide 25 mmol/L (22-29); Chloride 101 mmol/L (98-107); Estimated GFR-MDRD 85; Globulin 3.5 g/dL (2.4-3.5); Glucose 112 mg/dL (70-105); Potassium 3.9 mmol/L (3.5-5.1); Protein, Total 6.3 g/dL (6.0-8.3); Sodium 136 mmol/L (136-145)
[2020-06-12] MEDS: Enoxaparin Sodium 40 MG/0.4 ML SYRINGE SC SCH (08:26)
[2020-06-12] MEDS: Saccharomyces boulardii 250 MG CAP PO SCH (08:26)
[2020-06-12] MEDS: Famotidine 20 MG TAB PO SCH ×2 (08:26→21:15)
[2020-06-12 09:59] LABS: MDiff Complete? YES
[2020-06-12 10:00] LABS: Eosinophils 2 % (0-10); Giant Platelets SLIGHT; Lymphocytes 11 % (21-51); Metamyelocyte 2 % (0-0); Monocytes 5 % (0-10); Neutrophil 80 % (42-75); Platelet Morphology Comment Appears Adequate; RBC Morphology Normal
[2020-06-12] MEDS: Acetaminophen 325 MG TAB PO PRN (16:15)
[2020-06-12] MEDS ORDERED: hydrALAZINE 20 MG/ML VIAL SLOW IVP PRN (16:34)
--- NOTE | 2020-06-12 16:36 | PDOC.HOSPP ---
- Subjective Encounter Date: 06/11/20 Encounter Time: 10:30 Subjective: pt up in bed still has pain to his right leg - Objective Vital Signs & Weight: Vital Signs (12 hours) Temp Pulse Resp BP BP BP Pulse Ox 06/12/20 16:25 99.0 F 87 18 194/83 H 97 06/12/20 11:19 99.0 F 90 20 169/80 H 97 06/12/20 07:31 99.1 F 78 20 178/80 H 96 Weight Admit Weight 450 lb Weight 450 lb I&O: 06/11/20 06/12/20 06/13/20 06:59 06:59 06:59 Intake Total 5270 1640 Output Total 2900 2720 Balance 2370 -1080 Result Diagrams: 06/12/20 06:00 06/12/20 06:00 Hospitalist ROS - Review of Systems Cardiovascular: denies: chest pain, palpitations, orthopnea, paroxysmal noc. dyspnea, edema, light headedness, other Gastrointestinal: denies: nausea, vomiting, abdominal pain, diarrhea, constipation, melena, hematochezia, other Genitourinary: denies: dysuria, frequency, incontinence, hematuria, retention, other Musculoskeletal: reports: leg pain - Medication Medications: Active Medications Generic Name Dose Route Start Last Admin Trade Name Freq PRN Reason Stop Dose Admin Acetaminophen 650 mg 06/07/20 16:57 06/12/20 16:15 Acetaminophen 325 Mg Tab PO 650 mg Q8H PRN Administration Headache/Fever/Mild Pain (1-3) Acetaminophen/Codeine Phosphate 1 tab 06/07/20 18:46 06/11/20 13:59 Acetaminophen/Codeine 30-300mg Tablet PO 1 tab Q6H PRN Administration Pain 4-6 Enoxaparin Sodium 40 mg 06/08/20 09:00 06/12/20 08:26 Enoxaparin Sodium 40 Mg/0.4 Ml Syringe SC 40 mg 0900 JIGNESH Administration Famotidine 20 mg 06/07/20 21:00 06/12/20 08:26 Famotidine 20 Mg Tab PO 20 mg BID JIGNESH Administration Cefazolin Sodium/Dextrose 2 gm 50 mls @ 100 mls/hr 06/11/20 14:00 06/12/20 14:08 / Device IVPB 50 mls Q8HR JIGNESH Administration Ondansetron HCl 4 mg 06/07/20 16:57 06/11/20 09:01 Ondansetron Pf 4 Mg/2 Ml Vial IVP 4 mg Q6H PRN Administration Nausea/Vomiting Saccharomyces Boulardii 250 mg 06/12/20 09:00 06/12/20 08:26 Saccharomyces Boulardii 250 Mg Cap PO 250 mg DAILY JIGNESH Administration Sodium Chloride 10 ml 06/11/20 21:00 06/12/20 08:27 Flush - Normal Saline 10 Ml Syringe IVF 10 ml Q12HR JIGNESH Administration - Exam Heart: negative: RRR, no murmur, no gallops, no rubs, normal peripheral pulses, irregular, diminshed peripheral pulses, murmur present, II/IV, III/IV Respiratory: negative: CTAB, no wheezes, no rales, no ronchi, normal chest expansion, no tachypnea, normal percussion, rales, rhonchi, tachypneic, wheezes Gastrointestinal: negative: soft, non-tender, non-distended, normal bowel sounds, no palpable masses, no hepatomegaly, no splenomegaly, no bruit, no guarding, no rigidity, tender to palpation, distended, diminished bowl sounds, voluntary guarding Extremities: 2+ LE edema Skin: negative: normal turgor, no lesions, no rashes, tenting Hosp A/P (1) Sepsis Code(s): A41.9 - SEPSIS, UNSPECIFIED ORGANISM Status: Acute (2) Cellulitis Code(s): L03.90 - CELLULITIS, UNSPECIFIED Status: Acute (3) HTN (hypertension) Code(s): I10 - ESSENTIAL (PRIMARY) HYPERTENSION Status: Acute Qualifiers: (4) Obesity Code(s): E66.9 - OBESITY, UNSPECIFIED Status: Chronic - Plan will continue abx for now. pt still has some bandemia. possible discharge in the next 24-48hr. pt on dvt ppx and has been asked to ambulate. 06/09 will get right lower ext doppler. will continue abx for now. pt encouraged to ambulate. will stop fluid. 06/10 pt's Doppler to right leg negative for dvt. IV fluids stop. will give one dose of lasix. He has significant swelling to his right leg. erythema still persists. He is on vanco/Levaquin. 06/11 will consult ID, will get wound care for compression wrap. will monitor.
--- NOTE | 2020-06-12 16:40 | PDOC.HOSPP ---
- Subjective Encounter Date: 06/12/20 Encounter Time: 11:45 Subjective: pt up in bed been afebrile today. pt getting his right leg wrapped. - Objective Vital Signs & Weight: Vital Signs (12 hours) Temp Pulse Resp BP BP BP Pulse Ox 06/12/20 16:25 99.0 F 87 18 194/83 H 97 06/12/20 11:19 99.0 F 90 20 169/80 H 97 06/12/20 07:31 99.1 F 78 20 178/80 H 96 Weight Admit Weight 450 lb Weight 450 lb I&O: 06/11/20 06/12/20 06/13/20 06:59 06:59 06:59 Intake Total 5270 1640 Output Total 2900 2720 Balance 2370 -1080 Result Diagrams: 06/12/20 06:00 06/12/20 06:00 Hospitalist ROS - Review of Systems Cardiovascular: denies: chest pain, palpitations, orthopnea, paroxysmal noc. dyspnea, edema, light headedness, other Gastrointestinal: denies: nausea, vomiting, abdominal pain, diarrhea, constipation, melena, hematochezia, other Genitourinary: denies: dysuria, frequency, incontinence, hematuria, retention, other - Medication Medications: Active Medications Generic Name Dose Route Start Last Admin Trade Name Freq PRN Reason Stop Dose Admin Acetaminophen 650 mg 06/07/20 16:57 06/12/20 16:15 Acetaminophen 325 Mg Tab PO 650 mg Q8H PRN Administration Headache/Fever/Mild Pain (1-3) Acetaminophen/Codeine Phosphate 1 tab 06/07/20 18:46 06/11/20 13:59 Acetaminophen/Codeine 30-300mg Tablet PO 1 tab Q6H PRN Administration Pain 4-6 Enoxaparin Sodium 40 mg 06/08/20 09:00 06/12/20 08:26 Enoxaparin Sodium 40 Mg/0.4 Ml Syringe SC 40 mg 0900 JIGNESH Administration Famotidine 20 mg 06/07/20 21:00 06/12/20 08:26 Famotidine 20 Mg Tab PO 20 mg BID JIGNESH Administration Cefazolin Sodium/Dextrose 2 gm 50 mls @ 100 mls/hr 06/11/20 14:00 06/12/20 14:08 / Device IVPB 50 mls Q8HR JIGNESH Administration Ondansetron HCl 4 mg 06/07/20 16:57 06/11/20 09:01 Ondansetron Pf 4 Mg/2 Ml Vial IVP 4 mg Q6H PRN Administration Nausea/Vomiting Saccharomyces Boulardii 250 mg 06/12/20 09:00 06/12/20 08:26 Saccharomyces Boulardii 250 Mg Cap PO 250 mg DAILY JIGNESH Administration Sodium Chloride 10 ml 06/11/20 21:00 06/12/20 08:27 Flush - Normal Saline 10 Ml Syringe IVF 10 ml Q12HR JIGNESH Administration - Exam Heart: negative: RRR, no murmur, no gallops, no rubs, normal peripheral pulses, irregular, diminshed peripheral pulses, murmur present, II/IV, III/IV Respiratory: negative: CTAB, no wheezes, no rales, no ronchi, normal chest expansion, no tachypnea, normal percussion, rales, rhonchi, tachypneic, wheezes Gastrointestinal: negative: soft, non-tender, non-distended, normal bowel sounds, no palpable masses, no hepatomegaly, no splenomegaly, no bruit, no guarding, no rigidity, tender to palpation, distended, diminished bowl sounds, voluntary guarding Extremities: 2+ LE edema Hosp A/P (1) Sepsis Code(s): A41.9 - SEPSIS, UNSPECIFIED ORGANISM Status: Acute (2) Cellulitis Code(s): L03.90 - CELLULITIS, UNSPECIFIED Status: Acute (3) HTN (hypertension) Code(s): I10 - ESSENTIAL (PRIMARY) HYPERTENSION Status: Acute Qualifiers: (4) Obesity Code(s): E66.9 - OBESITY, UNSPECIFIED Status: Chronic - Plan will continue abx for now. pt still has some bandemia. possible discharge in the next 24-48hr. pt on dvt ppx and has been asked to ambulate. 06/09 will get right lower ext doppler. will continue abx for now. pt encouraged to ambulate. will stop fluid. 06/10 pt's Doppler to right leg negative for dvt. IV fluids stop. will give one dose of lasix. He has significant swelling to his right leg. erythema still persists. He is on vanco/Levaquin. 06/11 will consult ID, will get wound care for compression wrap. will monitor. 06/12 pt's abx switched by ID. pt is getting a compression wrap.
[2020-06-12] MEDS: Acetaminophen/Codeine 30-300mg Tablet PO PRN (22:03)
[2020-06-12] MEDS ORDERED: Ibuprofen 200 MG TAB PO SCH (23:00)
[2020-06-13] MEDS ORDERED: Ibuprofen 200 MG TAB PO SCH (01:15)
[2020-06-13] MEDS: CEFAZOLIN 2 GM in Premix Bag 1 BAG IVPB SCH ×3 (05:40→21:54)
[2020-06-13] MEDS: Enoxaparin Sodium 40 MG/0.4 ML SYRINGE SC SCH (10:33)
[2020-06-13] MEDS: Famotidine 20 MG TAB PO SCH ×2 (10:33→20:36)
[2020-06-13] MEDS: Saccharomyces boulardii 250 MG CAP PO SCH (10:33)
--- NOTE | 2020-06-13 13:14 | PDOC.HOSPP ---
- Subjective Encounter Date: 06/13/20 Encounter Time: 10:40 Subjective: Patient's family at bedside. It appears his erythema seems to be improving and also the distribution of his cellulitis is receding from the marking. His white count is trending down. He is afebrile - Objective Vital Signs & Weight: Vital Signs (12 hours) Temp Pulse Resp BP Pulse Ox 06/13/20 12:44 98.9 F 80 20 147/78 H 98 06/13/20 08:00 95 06/13/20 07:36 98.1 F 76 20 121/78 98 06/13/20 04:00 98.8 F Weight Admit Weight 450 lb Weight 450 lb I&O: 06/12/20 06/13/20 06/14/20 06:59 06:59 06:59 Intake Total 1640 240 Output Total 2720 Balance -1080 240 Result Diagrams: 06/12/20 06:00 06/12/20 06:00 Hospitalist ROS - Medication Medications: Active Medications Generic Name Dose Route Start Last Admin Trade Name Freq PRN Reason Stop Dose Admin Acetaminophen 650 mg 06/07/20 16:57 06/12/20 16:15 Acetaminophen 325 Mg Tab PO 650 mg Q8H PRN Administration Headache/Fever/Mild Pain (1-3) Acetaminophen/Codeine Phosphate 1 tab 06/07/20 18:46 06/12/20 22:03 Acetaminophen/Codeine 30-300mg Tablet PO 1 tab Q6H PRN Administration Pain 4-6 Enoxaparin Sodium 40 mg 06/08/20 09:00 06/13/20 10:33 Enoxaparin Sodium 40 Mg/0.4 Ml Syringe SC 40 mg 0900 JIGNESH Administration Famotidine 20 mg 06/07/20 21:00 06/13/20 10:33 Famotidine 20 Mg Tab PO 20 mg BID JIGNESH Administration Cefazolin Sodium/Dextrose 2 gm 50 mls @ 100 mls/hr 06/11/20 14:00 06/13/20 05:40 / Device IVPB 50 mls Q8HR JIGNESH Administration Ondansetron HCl 4 mg 06/07/20 16:57 06/11/20 09:01 Ondansetron Pf 4 Mg/2 Ml Vial IVP 4 mg Q6H PRN Administration Nausea/Vomiting Saccharomyces Boulardii 250 mg 06/12/20 09:00 06/13/20 10:33 Saccharomyces Boulardii 250 Mg Cap PO 250 mg DAILY JIGNESH Administration Sodium Chloride 10 ml 06/11/20 21:00 06/13/20 10:33 Flush - Normal Saline 10 Ml Syringe IVF 10 ml Q12HR JIGNESH Administration - Exam General Appearance: NAD, awake alert General - other findings: Obese Eye: PERRL ENT: normocephalic atraumatic Neck: supple Heart: RRR Respiratory: CTAB, normal chest expansion Gastrointestinal: soft, normal bowel sounds Extremities - other findings: Right leg in Dioni wrap erythema receding from the marking area Skin - other findings: Cellulitis on his right leg all the way over his distal part of the thigh Neurological: no focal deficits Psychiatric: A&O x 3 Hosp A/P - Plan (1) Sepsis Code(s): A41.9 - SEPSIS, UNSPECIFIED ORGANISM Status: Acute (2) Cellulitis Code(s): L03.90 - CELLULITIS, UNSPECIFIED Status: Acute (3) HTN (hypertension) Code(s): I10 - ESSENTIAL (PRIMARY) HYPERTENSION Status: Acute Qualifiers: (4) Obesity Code(s): E66.9 - OBESITY, UNSPECIFIED Status: Chronic - Plan Right leg cellulitis--negative for DVT -Received vancomycin and Levaquin and later switched to cefazolin 2 g every 8 hours Continue monitoring for now He has to be able to get up, put weight on his right leg and ambulate. PT consult placed.
[2020-06-13] MEDS: Acetaminophen/Codeine 30-300mg Tablet PO PRN (19:33)
[2020-06-14] MEDS: CEFAZOLIN 2 GM in Premix Bag 1 BAG IVPB SCH ×3 (05:02→21:02)
[2020-06-14] MEDS: Acetaminophen 325 MG TAB PO PRN (05:10)
[2020-06-14] MEDS: Famotidine 20 MG TAB PO SCH ×2 (09:02→20:46)
[2020-06-14] MEDS: Saccharomyces boulardii 250 MG CAP PO SCH (09:02)
[2020-06-14] MEDS: Enoxaparin Sodium 40 MG/0.4 ML SYRINGE SC SCH ×2 (09:05→20:46)
[2020-06-14] MEDS: Acetaminophen/Codeine 30-300mg Tablet PO PRN (10:41)
[2020-06-14] MEDS ORDERED: Bisacodyl 5 MG TAB PO PRN (10:50)
[2020-06-14] MEDS ORDERED: Furosemide 40 MG TAB PO SCH (11:00)
--- NOTE | 2020-06-14 13:03 | PDOC.HOSPP ---
- Subjective Encounter Date: 06/14/20 Encounter Time: 10:30 Subjective: Patient is not able to put weight on his leg. He is also complaining of eye intermittent swelling on his left foot. Compression seems to helpful. However whenever he elevates his feet at home, not much improvement in edema Cellulitis on his right thigh seems to be getting better the erythema less intense red. - Objective Vital Signs & Weight: Vital Signs (12 hours) Temp Pulse Resp BP BP Pulse Ox 06/14/20 11:55 98.3 F 06/14/20 07:36 98.7 F 80 20 120/76 98 06/14/20 05:40 98.9 F 06/14/20 05:13 99.9 F H 83 150/88 H Weight Admit Weight 450 lb Weight 450 lb I&O: 06/13/20 06/14/20 06/15/20 06:59 06:59 06:59 Intake Total 580 240 Output Total 1900 Balance -1320 240 Result Diagrams: 06/12/20 06:00 06/12/20 06:00 Hospitalist ROS - Medication Medications: Active Medications Generic Name Dose Route Start Last Admin Trade Name Freq PRN Reason Stop Dose Admin Acetaminophen 650 mg 06/07/20 16:57 06/14/20 05:10 Acetaminophen 325 Mg Tab PO 650 mg Q8H PRN Administration Headache/Fever/Mild Pain (1-3) Famotidine 20 mg 06/07/20 21:00 06/14/20 09:02 Famotidine 20 Mg Tab PO 20 mg BID JIGNESH Administration Cefazolin Sodium/Dextrose 2 gm 50 mls @ 100 mls/hr 06/11/20 14:00 06/14/20 05:02 / Device IVPB 50 mls Q8HR JIGNESH Administration Ondansetron HCl 4 mg 06/07/20 16:57 06/11/20 09:01 Ondansetron Pf 4 Mg/2 Ml Vial IVP 4 mg Q6H PRN Administration Nausea/Vomiting Saccharomyces Boulardii 250 mg 06/12/20 09:00 06/14/20 09:02 Saccharomyces Boulardii 250 Mg Cap PO 250 mg DAILY JIGNESH Administration Sodium Chloride 10 ml 06/11/20 21:00 06/14/20 09:02 Flush - Normal Saline 10 Ml Syringe IVF 10 ml Q12HR JIGNESH Administration - Exam General Appearance: NAD, awake alert General - other findings: Morbidly obese Eye: PERRL ENT: normocephalic atraumatic Neck: supple Heart: RRR Respiratory: CTAB Gastrointestinal: soft, normal bowel sounds Extremities: 2+ LE edema Extremities - other findings: Left foot swollen but it is chronic Neurological: no new deficit Psychiatric: A&O x 3 Hosp A/P - Plan (1) Sepsis Code(s): A41.9 - SEPSIS, UNSPECIFIED ORGANISM Status: Acute (2) Cellulitis Code(s): L03.90 - CELLULITIS, UNSPECIFIED Status: Acute (3) HTN (hypertension) Code(s): I10 - ESSENTIAL (PRIMARY) HYPERTENSION Status: Acute Qualifiers: (4) Obesity Code(s): E66.9 - OBESITY, UNSPECIFIED Status: Chronic - Plan Right leg cellulitis--negative for DVT -Received vancomycin and Levaquin and later switched to cefazolin 2 g every 8 hours, per ID recommendations. -Seems to be improving. PT consult placed. Pain when he is trying to stand up on his feet.-------------> analgesic added Constipation intermittently -It is not new for him. Provided Senokot [not helping much ] and will add Dulcolax as well. Possible chronic lymphedema in addition to morbid obesity associated edema, spe cifically noted on his left foot more so.--Patient states that it is at least ongoing for the last 6 months. Compression helps but not much. He needs periodic follow-up with wound care clinic and the Dioni wrap compression and leg elevation measures.
[2020-06-14] MEDS: HYDROcodone/Acetaminophen 7.5/325 mg Tablet PO PRN (14:06)
[2020-06-15] MEDS: CEFAZOLIN 2 GM in Premix Bag 1 BAG IVPB SCH ×3 (05:29→21:23)
[2020-06-15 06:24] LABS: #Eosinphils 0.3 thou/uL (0.0-0.7); #Lymphocytes 1.8 thou/uL (1.20-3.40); #Neutrophils 9.7 thou/uL (1.40-6.50); %Basophils 0.4 % (0.0-1.0); %Lymphocytes 14.1 % (21.0-51.0); %Monocytes 7.6 % (0.0-10.0); Hemoglobin 12.2 g/dL (14.0-18.0); Mean Corpuscular HGB CONC 33.5 g/dL (32.0-36.0); Mean Corpuscular Hemoglobin 30.7 pg (27.0-31.0); Mean Corpuscular Volume 91.5 fL (78.0-98.0); Mean Platelet Volume 7.4 fL (7.4-10.4); Platelet Count 392 thou/uL (130-400); Red Blood Cell (RBC) Count 3.97 mill/uL (4.70-6.10); White Blood Cell (WBC) Count 12.8 thou/uL (4.8-10.8)
[2020-06-15 06:35] LABS: Anion Gap 12 mmol/L (10-20); BUN (Urea Nitrogen) 9 mg/dL (8.9-20.6); Calc. Creatinine Clearance 334 mL/min (70-130); Calcium 8.3 mg/dL (7.8-10.44); Carbon Dioxide 27 mmol/L (22-29); Chloride 100 mmol/L (98-107); Estimated GFR-MDRD Greater than 90; Glucose 107 mg/dL (70-105); Potassium 4.4 mmol/L (3.5-5.1); Sodium 135 mmol/L (136-145)
[2020-06-15] MEDS: Saccharomyces boulardii 250 MG CAP PO SCH (08:29)
[2020-06-15] MEDS: Enoxaparin Sodium 40 MG/0.4 ML SYRINGE SC SCH ×2 (08:30→21:24)
[2020-06-15] MEDS: Furosemide 20 MG TAB PO SCH (08:30)
[2020-06-15] MEDS: Famotidine 20 MG TAB PO SCH ×2 (08:30→21:23)
[2020-06-15] MEDS: HYDROcodone/Acetaminophen 7.5/325 mg Tablet PO PRN (08:35)
--- NOTE | 2020-06-15 11:56 | PDOC.HOSPP ---
- Subjective Encounter Date: 06/15/20 Encounter Time: 11:54 Subjective: still has discomfort in RLE - Objective Vital Signs & Weight: Vital Signs (12 hours) Temp Pulse Resp BP Pulse Ox 06/15/20 07:26 98.3 F 87 20 120/76 98 06/15/20 05:20 99.8 F H 91 18 127/81 97 06/15/20 00:00 99.7 F H 93 18 124/74 96 Weight Admit Weight 450 lb Weight 450 lb I&O: 06/14/20 06/15/20 06/16/20 06:59 06:59 06:59 Intake Total 580 3670 Output Total 1900 3100 Balance -1320 570 Result Diagrams: 06/15/20 05:43 06/15/20 05:43 Hospitalist ROS - Medication Medications: Active Medications Generic Name Dose Route Start Last Admin Trade Name Freq PRN Reason Stop Dose Admin Acetaminophen 650 mg 06/07/20 16:57 06/14/20 05:10 Acetaminophen 325 Mg Tab PO 650 mg Q8H PRN Administration Headache/Fever/Mild Pain (1-3) Hydrocodone Bitart/Acetaminophen 1 tab 06/14/20 10:50 06/15/20 08:35 Hydrocodone/Acetaminophen 7.5/325 Mg Tablet PO 1 tab Q6H PRN Administration Mild Pain (1-3) Enoxaparin Sodium 40 mg 06/14/20 21:00 06/15/20 08:30 Enoxaparin Sodium 40 Mg/0.4 Ml Syringe SC 40 mg BID JIGNESH Administration Famotidine 20 mg 06/07/20 21:00 06/15/20 08:30 Famotidine 20 Mg Tab PO 20 mg BID JIGNESH Administration Furosemide 40 mg 06/15/20 09:00 06/15/20 08:30 Furosemide 20 Mg Tab PO 40 mg DAILY JIGNESH Administration Cefazolin Sodium/Dextrose 2 gm 50 mls @ 100 mls/hr 06/11/20 14:00 06/15/20 05:29 / Device IVPB 50 mls Q8HR JIGNESH Administration Ondansetron HCl 4 mg 06/07/20 16:57 06/11/20 09:01 Ondansetron Pf 4 Mg/2 Ml Vial IVP 4 mg Q6H PRN Administration Nausea/Vomiting Saccharomyces Boulardii 250 mg 06/12/20 09:00 06/15/20 08:29 Saccharomyces Boulardii 250 Mg Cap PO 250 mg DAILY JIGNESH Administration Sodium Chloride 10 ml 06/11/20 21:00 06/15/20 08:30 Flush - Normal Saline 10 Ml Syringe IVF 10 ml Q12HR JIGNESH Administration - Exam General Appearance: awake alert Neck: no JVD Heart: RRR, no murmur Respiratory: CTAB Gastrointestinal: soft, normal bowel sounds Extremities - other findings: lymphedame. bandaged RLE Hosp A/P (1) Lymphedema Code(s): I89.0 - LYMPHEDEMA, NOT ELSEWHERE CLASSIFIED Status: Chronic (2) Cellulitis Code(s): L03.90 - CELLULITIS, UNSPECIFIED Status: Acute Qualifiers: Site of cellulitis: extremity Site of cellulitis of extremity: lower e xtremity Laterality: right Qualified Code(s): L03.115 - Cellulitis of right lower limb (3) HTN (hypertension) Code(s): I10 - ESSENTIAL (PRIMARY) HYPERTENSION Status: Acute Qualifiers: Hypertension type: essential hypertension Qualified Code(s): I10 - Essential (primary) hypertension (4) Obesity Code(s): E66.9 - OBESITY, UNSPECIFIED Status: Chronic (5) Tobacco abuse Code(s): Z72.0 - TOBACCO USE Status: Inactive - Plan cont iv antibx cont wound carediscuss with ID
[2020-06-16] MEDS: CEFAZOLIN 2 GM in Premix Bag 1 BAG IVPB SCH ×3 (05:33→21:42)
[2020-06-16] MEDS: HYDROcodone/Acetaminophen 7.5/325 mg Tablet PO PRN ×2 (05:38→14:42)
[2020-06-16] MEDS: Saccharomyces boulardii 250 MG CAP PO SCH (08:51)
[2020-06-16] MEDS: Enoxaparin Sodium 40 MG/0.4 ML SYRINGE SC SCH ×2 (08:51→20:01)
[2020-06-16] MEDS: Famotidine 20 MG TAB PO SCH ×2 (08:51→20:01)
[2020-06-16] MEDS: Furosemide 20 MG TAB PO SCH (08:51)
--- NOTE | 2020-06-16 10:40 | PDOC.HOSPP ---
- Subjective Encounter Date: 06/16/20 Encounter Time: 10:38 Subjective: no fever, chills. decreased discomfort R LE - Objective Vital Signs & Weight: Vital Signs (12 hours) Temp Pulse Resp BP BP Pulse Ox 06/16/20 07:52 98.7 F 69 20 145/72 H 97 06/16/20 04:00 99.4 F 84 20 176/78 H 96 06/16/20 00:00 99.3 F 88 20 144/78 H 96 Weight Admit Weight 450 lb Weight 450 lb I&O: 06/15/20 06/16/20 06/17/20 06:59 06:59 06:59 Intake Total 3670 920 Output Total 3100 1250 Balance 570 -330 Result Diagrams: 06/15/20 05:43 06/15/20 05:43 Hospitalist ROS - Medication Medications: Active Medications Generic Name Dose Route Start Last Admin Trade Name Freq PRN Reason Stop Dose Admin Acetaminophen 650 mg 06/07/20 16:57 06/14/20 05:10 Acetaminophen 325 Mg Tab PO 650 mg Q8H PRN Administration Headache/Fever/Mild Pain (1-3) Hydrocodone Bitart/Acetaminophen 1 tab 06/14/20 10:50 06/16/20 05:38 Hydrocodone/Acetaminophen 7.5/325 Mg Tablet PO 1 tab Q6H PRN Administration Mild Pain (1-3) Enoxaparin Sodium 40 mg 06/14/20 21:00 06/16/20 08:51 Enoxaparin Sodium 40 Mg/0.4 Ml Syringe SC 40 mg BID JIGNESH Administration Famotidine 20 mg 06/07/20 21:00 06/16/20 08:51 Famotidine 20 Mg Tab PO 20 mg BID JIGNESH Administration Furosemide 40 mg 06/15/20 09:00 06/16/20 08:51 Furosemide 20 Mg Tab PO 40 mg DAILY JIGNESH Administration Cefazolin Sodium/Dextrose 2 gm 50 mls @ 100 mls/hr 06/11/20 14:00 06/16/20 05:33 / Device IVPB 50 mls Q8HR JIGNESH Administration Ondansetron HCl 4 mg 06/07/20 16:57 06/11/20 09:01 Ondansetron Pf 4 Mg/2 Ml Vial IVP 4 mg Q6H PRN Administration Nausea/Vomiting Saccharomyces Boulardii 250 mg 06/12/20 09:00 06/16/20 08:51 Saccharomyces Boulardii 250 Mg Cap PO 250 mg DAILY JIGNESH Administration Sodium Chloride 10 ml 06/11/20 21:00 06/16/20 08:52 Flush - Normal Saline 10 Ml Syringe IVF 10 ml Q12HR JIGNESH Administration - Exam General Appearance: awake alert Neck: no JVD Heart: RRR, no murmur Respiratory: CTAB Gastrointestinal: soft, non-tender, normal bowel sounds Extremities - other findings: lymphedema, RLE bandaged Hosp A/P (1) Lymphedema Code(s): I89.0 - LYMPHEDEMA, NOT ELSEWHERE CLASSIFIED Status: Chronic (2) Cellulitis Code(s): L03.90 - CELLULITIS, UNSPECIFIED Status: Acute Qualifiers: Site of cellulitis: extremity Site of cellulitis of extremity: lower extremity Laterality: right Qualified Code(s): L03.115 - Cellulitis of right lower limb (3) HTN (hypertension) Code(s): I10 - ESSENTIAL (PRIMARY) HYPERTENSION Status: Acute Qualifiers: Hypertension type: essential hypertension Qualified Code(s): I10 - Essential (primary) hypertension (4) Obesity Code(s): E66.9 - OBESITY, UNSPECIFIED Status: Chronic - Plan cont iv antibx cont wound care discuss with ID CBC/BMP today
[2020-06-16 10:52] LABS: #Eosinphils 0.2 thou/uL (0.0-0.7); #Lymphocytes 1.7 thou/uL (1.20-3.40); #Monocytes 0.6 thou/uL (0.11-0.59); #Neutrophils 7.1 thou/uL (1.40-6.50); %Basophils 0.3 % (0.0-1.0); %Eosinophils 1.9 % (0.0-10.0); %Lymphocytes 17.5 % (21.0-51.0); %Monocytes 5.9 % (0.0-10.0); %Neutrophils 74.5 % (42.0-75.0); Hemoglobin 12.2 g/dL (14.0-18.0); Mean Corpuscular HGB CONC 33.3 g/dL (32.0-36.0); Mean Corpuscular Hemoglobin 30.5 pg (27.0-31.0); Mean Corpuscular Volume 91.7 fL (78.0-98.0); Mean Platelet Volume 7.1 fL (7.4-10.4); Platelet Count 371 thou/uL (130-400); RBC Distribution Width 12.9 % (11.5-14.5); Red Blood Cell (RBC) Count 4.01 mill/uL (4.70-6.10); White Blood Cell (WBC) Count 9.5 thou/uL (4.8-10.8)
[2020-06-16 11:18] LABS: Anion Gap 12 mmol/L (10-20); BUN (Urea Nitrogen) 10 mg/dL (8.9-20.6); Calc. Creatinine Clearance 326 mL/min (70-130); Calcium 8.3 mg/dL (7.8-10.44); Carbon Dioxide 28 mmol/L (22-29); Chloride 99 mmol/L (98-107); Estimated GFR-MDRD Greater than 90; Glucose 120 mg/dL (70-105); Potassium 4.4 mmol/L (3.5-5.1); Sodium 135 mmol/L (136-145)
[2020-06-17] MEDS: CEFAZOLIN 2 GM in Premix Bag 1 BAG IVPB SCH (05:39)
[2020-06-17] MEDS: Furosemide 20 MG TAB PO SCH (09:36)
[2020-06-17] MEDS: Enoxaparin Sodium 40 MG/0.4 ML SYRINGE SC SCH (09:36)
[2020-06-17] MEDS: Famotidine 20 MG TAB PO SCH (09:36)
[2020-06-17] MEDS: Saccharomyces boulardii 250 MG CAP PO SCH (09:36)
[2020-06-17] MEDS ORDERED: Cephalexin 250 MG CAP PO SCH (12:00)
--- NOTE | 2020-06-17 15:18 | DIS ---
DATE OF ADMISSION: 06/07/2020 DATE OF DISCHARGE: 06/17/2020 PRIMARY CARE PROVIDER: None. DISCHARGE DISPOSITION: Discharged home. FINAL DIAGNOSES: 1. Cellulitis, right lower extremity. 2. Obesity. 3. Lymphedema. 4. Sepsis syndrome with lactic acidosis. DISCHARGE MEDICINES: 1. Cephalexin 500 mg p.o. q.i.d. for 4 to 6 weeks. 2. Florastor 250 mg a day. ALLERGIES: PENICILLIN, SULFONAMIDES. NOTEWORTHY, HE HAS NO TROUBLE WITH ROCEPHIN. DIET: As tolerated. AMBULATION: As tolerated. CODE STATUS: Full. PENDING AT TIME OF DISCHARGE: Nothing. CONSULTATIONS: 06/11/2020, Dr. Evangelist Jung, Infectious Disease. PROCEDURES: None HOSPITAL COURSE: Admitted through the emergency department to the Hospitalist Service. The patient admitted with right lower extremity cellulitis, pain, worsening erythema, 104 temperature at home. He was placed in the hospital, put on broad-spectrum antibiotics. Wound care was done. He had a vascular ultrasound of that leg, reveals no deep vein thrombosis. On his blood cultures, 1/2 with presumptive micrococcus, considered a contaminant. After being seen by Dr. Jung, he was on cephalexin. He has been afebrile since 06/13/2020. Laboratory; his initial creatinine was 1.22, which rapidly returned to normal with IV fluids. He had some minimal abnormalities of his AST and sodium while on vancomycin. He was followed with a vancomycin trough, but that was shortly discontinued. He was SARS negative. Initial white count was 25,000, which came down to 9500 yesterday. He recently had a bandemia which resolved by 06/11. His erythema in his right lower extremity is extended into the distal thigh. The level of erythema was marked with a marker. It has receded very markedly. Wound Care has been wrapping his leg several times a week. He is being discharged. He needs a PCP for followup in 7 days. He has been given a prescription for cephalexin 500 mg p.o. q.i.d. for 4 weeks. He will probably need 2 weeks after that and then 250 mg p.o. twice a day for a year. He will also need compression stockings when available. Wound care has been arranged as an outpatient through Case Management. Job ID: [id number]
[2020-06-17] MEDS: HYDROcodone/Acetaminophen 7.5/325 mg Tablet PO PRN (16:11)
[2020-06-17 16:15] VITALS: BP 156/79; TEMP 98.8
--- NOTE | 2020-06-19 20:23 | PQF ---
Dear : Guanaco Medrano Date 06/19/2020 Please exercise your independent, professional judgment in responding to the clarification form. Clinical indicators are provided on the bottom of this form for your review Can you please further clarify the conflicting diagnosis? Please check appropriate box(es): Conflicting documentation was noted in the Medical Record; please clarify if patient is being treated/monitored for: [ ] Sepsis [ x] Sepsis syndrome [ ] Other diagnosis please specify [ ] Unable to determine Physician Signature: Date/Time: For continuity of documentation, please document condition throughout progress notes and discharge summary. Thank You. To be completed by CDI/Coding staff for physician review: Present Clinical Indicators - Signs / Symptoms / Labs Results and Location in Medical Record [ x ] Sepsis syndrome DS pg.1 [ x ] Lactic acidosis DS pg.1 [ x ] Febrile T: 103.2 ED Provider pg.2 [ x ] Pulse tachycardic ED Provider pg.2 [ x ] Sepsis ED Provider pg.3 [ x ] Sepsis most likely cellulitis H and P pg.2 [ x ] Lactic acidosis most likely 2/2 Sepsis H and P pg.2 [ x ] WBC: 25.5H, 16.5H, 13.6H, 12.8H, 12.8H, 9.5 Laboratory [ x ] Recurrent episode of cellulitis Consult pg.2 Dr. Jung Present Risk Factors Results and Location in Medical Record [ x ] Cellulitis right lower extremity DS pg.1 [ x ] Obesity Hospitalist PN pg.4 Present Treatments Results and Location in Medical Record [ x ] IV Fluids MAR [ x ] Blood culture Microbiology [ x ] Vascular ultrasound 06/09 Vascular ultrasound 06/09 [ x ] Infectious Consult Dr. Jung 06/11 [ x ] WBC Monitoring Laboratory [ x ] Vancomycin 2gm IV [ x ] Cefepime 2gm IV [ x ] Keflex 500mg PO CDS/Licensed Funeral Director Signature: Ap Moran Phone #: [phone] Date 06/19/2020 This is a permanent part of the Medical Record [facility]
== END 2020-06-17 17:17 | disposition home or self-care (01) | DRG 603 ==
LOC: ERS 14:45 → T4-B 17:02
PROVIDERS: ADMIT Internal Medicine; ATTEND Internal Medicine
DX: L03.115 Cellulitis of right lower limb (principal); Z68.44 Body mass index [BMI] 60.0-69.9, adult; E66.01 Morbid (severe) obesity due to excess calories; I89.0 Lymphedema, not elsewhere classified; F41.9 Anxiety disorder, unspecified; I10 Essential (primary) hypertension; K59.00 Constipation, unspecified; Z87.891 Personal history of nicotine dependence; Z88.1 Allergy status to other antibiotic agents; Z88.2 Allergy status to sulfonamides
CPT/HCPCS: 36415; 71045; 80048; 80053; 80202; 81001; 83036; 83605; 85025; 87040; 87635; 96365; 96366; 96368; J0690; J0692; J1650; J1940; J1956; J2405; J3370; J7030; U0003